=== PATIENT | female | born 1970 | race Caucasian/White ===

== ENCOUNTER 2016-09-17 13:03 | Emergency (ER) | payer OTHER ==
[~2016-09-17] VITALS: Ht 157.5 cm; Wt 129.7 kg
[~2016-09-17 13:03] MED LIST: AMARYL4 MG PO; AMBIEN 10 MG TA10 MG PO; AMBIEN 5 MG TABL5 M1 PO; ANTIVERT25 MG PO; ATHLETE'S FOOT15 GM; BACTRIM DS TAB1 EACH PO; BACTROBAN CREAM30 G1 TOP; BENADRYL25 MG PO; BENTYL20 MG PO; CARBAMAZEPINE200 M2 PO; CIPROFLOXACIN500 M3 PO; CLARITIN10 M2 PO; CLONAZEPAM 1 MG1 M1 PO; CLONAZEPAM PO; CLOTRIM ANTIFUN15 GM TP; CYMBALTA30 MG PO; CYMBALTA60 MG PO; DICLOFENAC SODI75 MG PO; DIFLUCAN200 MG PO; DILAUDID 2 MG TA2 MG PO; DITROPAN XL5 M1 PO; FAMCYCLOVIR 50500 M1 PO; FLEXERIL PO; GABAPENTIN100 MG PO; GLIPIZIDE XL10 MG PO; GLUCOPHAGE1000 MG PO; GLUCOPHAGE500 MG PO; GLUCOTROL10 MG PO; HUMALOG100 UNIT/1 SUBQ; HUMALOG100 UNIT/2 SQ; HYDROCODON-ACE1 EAC7 PO; HYDROCODONE-AP1 EAC6 PO; IBUPROFEN 600600 M1 PO; IBUPROFEN 800800 M1 PO; LANTUS100 UNIT/M SUBQ; LEVEMIR SUBQ; LEXAPRO PO; LEXAPRO20 MG PO; LISINOPRIL20 MG PO; LOMOTIL TABLET1 EACH; LORTAB 5 MG/5001 TA1 PO; MACROBID 100 M100 M1 PO; MEDROLDOSEPACK PO; METFORMIN PO; NEURONTIN 300300 M1 PO; NORCO 5-325 TA1 EACH; NORCO 5-325 TA1 EACH PO; NOVOLOG100 UNIT/1 SUBQ; OMEPRAZOLE20 M2 PO; ONDANSETRON HCL4 M2 PO; OXYCODONE HCL10 MG PO; PAXIL10 MG PO; PERCOCET 5-3251 EACH PO; PHENERGAN 25 MG25 M1 PO; PREDNISONE 20 M20 M1 PO; PREDNISONE 20 M20 MG PO; PYRIDIUM200 M1 PO; RESTORIL PO; SEROQUEL 50 MG50 M1 PO; SEROQUEL200 MG PO; TRIAMCINOLONE A80 G2 TOP; VICODIN 5-5001 EACH PO; ZANTAC 150MG T150 M1 PO; ZOFRAN4 MG PO; ZOFRAN8 MG PO
[2016-09-17 13:42] LABS: URINE BILIRUBIN NEGATIVE (Negative); URINE BLOOD 2+ (Negative); URINE COLOR YELLOW; URINE GLUCOSE-RANDOM* 3+ (Negative); URINE KETONES NEGATIVE (Negative); URINE NITRITE NEGATIVE (Negative); URINE PROTEIN (DIPSTICK) NEGATIVE (Negative); URINE SPECIFIC GRAVITY <= 1.005 (1.003-1.035); URINE UROBILINOGEN 0.2 E.U./dl (0.2-1.0)
[2016-09-17 13:48] LABS: BACTERIA 1-9 Few /HPF (None Seen); CASTS None Seen /LPF (None Seen); CRYSTALS None Seen /LPF (None Seen); SQUAMOUS 4-10 Moderate /LPF (0-3); URINE WBC 6-15 Few /HPF (0-5); YEAST Present (None Seen)
[2016-09-17 13:49] LABS: URINE RBC 3-10 Few /HPF (0-2)
[2016-09-17] MEDS ORDERED: IBUPROFEN 600600 M1 PO (13:53)
[2016-09-17] MEDS ORDERED: ALEVE220 MG PO (13:53)
[2016-09-17 14:56] LABS: BASOPHILS 0.3 % (0.0-2.0); EOSINOPHILS 1.5 % (0.0-3.0); HEMATOCRIT 39.4 % (37.0-47.0); LYMPHOCYTES 26.3 % (24.0-44.0); MCH 27.3 pg (26.0-34.0); MCHC 32.9 % (28.0-37.0); MCV 82.9 fL (80.0-100.0); PLATELET COUNT 112 thou/uL (150-400); POLYS 64.9 % (36.0-66.0); RBC 4.75 mil/uL (4.20-5.00); RDW 15.4 % (10.5-14.5); WBC 6.1 thou/uL (4.0-11.0)
[2016-09-17 14:58] LABS: MANUAL DIFF NO
[2016-09-17 15:08] LABS: CALCIUM 8.7 mg/dL (8.5-10.1); CREATININE 0.8 mg/dL (0.6-1.3); POTASSIUM 3.6 mmol/L (3.5-5.1)
[2016-09-17] MEDS ORDERED: DIFLUCAN150 MG PO (15:09)
[2016-09-17 15:57] LABS: ABG SAMPLE TYPE ARTERIAL; BE(vivo) 0.2 mmol/L (-2 to +3); HCO3 24.1 mmol/L (22.0-26.0); LACTATE 1.88 mmol/L (0.5-2.0); O2(CT) 17.7 mL/dL (15.0-23.0); O2Hb VENOUS 90.7 (65.0-85.0); PCO2 VENOUS 36.8 mmHg (41.0-51.0); PO2 VENOUS 63.1 mmHg (35.0-45.0); sO2 VENOUS 92.9 % (65.0-85.0); tCO2 25.2 mmol/L (24.0-30.0)
[2016-09-17 15:58] LABS: STICK SITE LINE
[2016-09-18 14:08] LABS: CHLAMYDIA TRACHOMATIS-PCR Negative (Negative); NEISSERIA GONORRHEA-PCR Negative (Negative)
[2016-11-10] MEDS ORDERED: BACTROBAN CREAM30 G1 TOP (16:04)
[2016-11-10] MEDS ORDERED: KEFLEX500 MG PO (16:10)
== END 2016-09-17 16:58 ==
LOC: ER 13:03
PROVIDERS: Physician Assistant
DX: B37.3 Candidiasis of vulva and vagina (principal); G89.29 Other chronic pain; E11.65 Type 2 diabetes mellitus with hyperglycemia; E66.01 Morbid (severe) obesity due to excess calories; F23 Brief psychotic disorder; F32.9 Major depressive disorder, single episode, unspecified; K74.60 Unspecified cirrhosis of liver; Z88.6 Allergy status to analgesic agent; Z91.013 Allergy to seafood; Z91.040 Latex allergy status; Z88.1 Allergy status to other antibiotic agents; Z91.018 Allergy to other foods; F17.210 Nicotine dependence, cigarettes, uncomplicated; F10.99 Alcohol use, unspecified with unspecified alcohol-induced disorder

== ENCOUNTER 2017-10-11 14:50 | Emergency (ER) | payer OTHER ==
[~2017-10-11] VITALS: Ht 160 cm; Wt 121.6 kg
[~2017-10-11 14:50] MED LIST changes: +ALEVE220 MG PO; +DIFLUCAN150 MG PO; +KEFLEX500 MG PO
[2017-10-11] MEDS ORDERED: HYDROCODONE-AP1 EAC6 PO (16:31)
[2017-10-11 16:48] VITALS: BP 133/76
[2017-12-17] MEDS ORDERED: ZOFRAN ODT4 MG PO (01:24)
[2017-12-17] MEDS ORDERED: NORFLEX100 MG PO (01:24)
[2017-12-23] MEDS ORDERED: NEURONTIN 300300 M1 PO (13:55)
[2017-12-23] MEDS ORDERED: HYDROCODONE-AP1 EAC6 PO (14:36)
[2018-03-27] MEDS ORDERED: KEFLEX500 M1 PO (10:38)
[2018-03-27] MEDS ORDERED: CLOBETASOL PROP50 M1 TOP (10:39)
[2018-03-27] MEDS ORDERED: PREDNISONE 20 M20 MG PO (10:39)
[2018-04-07] MEDS ORDERED: DOXYCYCLINE HYC50 MG PO (10:00)
[2018-04-07] MEDS ORDERED: CENTANY30 GM TOP (10:01)
[2018-04-23] MEDS ORDERED: CELLCEPT500 MG PO (15:52)
[2018-04-23] MEDS ORDERED: PREDNISONE 20 M20 MG PO (15:52)
[2018-04-23] MEDS ORDERED: CLINDAMYCIN HC300 MG PO (16:00)
== END 2017-10-11 16:55 | disposition home or self-care (01) ==
LOC: ER 14:50
DX: S46.811A Strain of other muscles, fascia and tendons at shoulder and upper arm level, right arm, initial encounter (principal); E11.9 Type 2 diabetes mellitus without complications; E66.01 Morbid (severe) obesity due to excess calories; M54.9 Dorsalgia, unspecified; G89.29 Other chronic pain; Z87.891 Personal history of nicotine dependence; Z88.5 Allergy status to narcotic agent; Z88.6 Allergy status to analgesic agent; Z88.8 Allergy status to other drugs, medicaments and biological substances; W18.2XXA Fall in (into) shower or empty bathtub, initial encounter; Y93.89 Activity, other specified; Y92.89 Other specified places as the place of occurrence of the external cause; Y99.8 Other external cause status

== ENCOUNTER 2017-12-04 16:14 | Inpatient (IN) | payer OTHER ==
[~2017-12-04] VITALS: Ht 157.5 cm; Wt 128.8 kg
[2017-12-04 16:57] VITALS: BP 133/82
[2017-12-04 17:50] LABS: ABSOLUTE NEUTROPHILS 5.2 thou/uL (1.4-8.2); BASOPHILS 0.9 % (0.0-2.0); EOSINOPHILS 2.7 % (0.0-3.0); HEMATOCRIT 41.9 % (37.0-47.0); HEMOGLOBIN 14.2 gm/dL (12.0-15.0); LYMPHOCYTES 22.4 % (24.0-44.0); MCH 30.1 pg (26.0-34.0); MCHC 33.9 g/dL (28.0-37.0); MCV 88.8 fL (80.0-100.0); MONOCYTES 8.8 % (1.0-8.0); PLATELET COUNT 125 thou/uL (150-400); POLYS 65.2 % (36.0-66.0); RBC 4.72 mil/uL (4.20-5.00); RDW 14.8 % (10.5-14.5); WBC 8.1 thou/uL (4.0-11.0)
[2017-12-04 17:55] LABS: URINE BILIRUBIN NEGATIVE (Negative); URINE BLOOD NEGATIVE (Negative); URINE CLARITY CLEAR; URINE COLOR YELLOW; URINE GLUCOSE-RANDOM* 3+ (Negative); URINE KETONES NEGATIVE (Negative); URINE LEUKOCYTES-REFLEX NEGATIVE (Negative); URINE NITRITE-REFLEX NEGATIVE (Negative); URINE PROTEIN (DIPSTICK) TRACE (Negative)
[2017-12-04 17:58] LABS: CALCIUM 9.2 mg/dL (8.5-10.1); CREATININE 0.9 mg/dL (0.6-1.0)
[2017-12-04 18:00] LABS: POTASSIUM 2.9 mmol/L (3.5-5.1)
[2017-12-04 18:04] LABS: ALBUMIN 2.6 g/dL (3.4-5.0); TOTAL BILIRUBIN 0.5 mg/dL (<0.1-1.0); TOTAL PROTEIN 7.2 g/dL (6.4-8.2)
[2017-12-04 20:46] LABS: AMP/METHAMP Negative (Negative); BARBITURATES Negative (Negative); BENZODIAZEPINES Negative (Negative); COCAINE Negative (Negative); METHADONE Negative (Negative); OPIATES Negative (Negative); PCP Negative (Negative)
[2017-12-04 21:13] VITALS: BP 133/82
[2017-12-04] MEDS ORDERED: LANTUS100 UNIT/M SUBQ (21:45)
[2017-12-04] MEDS ORDERED: NOVOLOG100 UNIT/1 SUBQ (21:45)
[2017-12-04 22:00] VITALS: BP 130/88
[2017-12-04 22:03] VITALS: BP 132/74
[2017-12-04 22:31] LABS: MAGNESIUM 1.3 mg/dL (1.8-2.4); POTASSIUM 3.7 mmol/L (3.5-5.1)
[2017-12-05 02:56] LABS: HEMATOCRIT 42.8 % (37.0-47.0); HEMOGLOBIN 14.5 gm/dL (12.0-15.0); MCH 30.1 pg (26.0-34.0); MCHC 33.8 g/dL (28.0-37.0); RBC 4.81 mil/uL (4.20-5.00); WBC 6.7 thou/uL (4.0-11.0)
[2017-12-05 03:00] VITALS: BP 160/92
[2017-12-05 03:05] LABS: CREATININE 0.9 mg/dL (0.6-1.0); MAGNESIUM 1.5 mg/dL (1.8-2.4); POTASSIUM 4.4 mmol/L (3.5-5.1)
[2017-12-05 07:12] VITALS: BP 141/79
[2017-12-05 15:17] VITALS: BP 149/69
[2017-12-05 16:04] VITALS: BP 145/69
[2017-12-05 19:30] VITALS: BP 145/64
[2017-12-06 00:15] VITALS: BP 133/68
[2017-12-06 04:05] VITALS: BP 136/70
[2017-12-06 04:26] LABS: BASOPHILS 0.1 % (0.0-2.0); HEMATOCRIT 41.4 % (37.0-47.0); HEMOGLOBIN 13.9 gm/dL (12.0-15.0); LYMPHOCYTES 7.3 % (24.0-44.0); MCH 30.1 pg (26.0-34.0); MCHC 33.5 g/dL (28.0-37.0); MONOCYTES 1.7 % (1.0-8.0); PLATELET COUNT 94 thou/uL (150-400); POLYS 90.9 % (36.0-66.0); RDW 14.7 % (10.5-14.5); WBC 9.9 thou/uL (4.0-11.0)
[2017-12-06 04:33] LABS: CALCIUM 8.7 mg/dL (8.5-10.1); CREATININE 0.7 mg/dL (0.6-1.0)
[2017-12-06 07:17] LABS: MAGNESIUM 1.6 mg/dL (1.8-2.4)
[2017-12-06] MEDS ORDERED: MEDROL DOSPAK21 TA1 PO (08:10)
[2017-12-06 08:11] VITALS: BP 159/97
[2017-12-06 10:01] VITALS: BP 159/97
[2017-12-06 14:06] LABS: COMPLEMENT-C3 156 mg/dL (82-167); COMPLEMENT-C4 11 mg/dL (14-44)
[2017-12-08 20:07] LABS: ANA INTERPRETATION Negative (())
== END 2017-12-06 11:12 | disposition home or self-care (01) | DRG 546 ==
LOC: ER 16:14 → EROBS 20:06 → 3W 20:06
PROVIDERS: Emergency Medicine; Family Medicine; Hospitalist; Internal Medicine Rheumatology; Nurse Practitioner Family; Physician Assistant
DX: I77.6 Arteritis, unspecified (principal); Z68.43 Body mass index [BMI] 50.0-59.9, adult; E87.6 Hypokalemia; E11.9 Type 2 diabetes mellitus without complications; F20.9 Schizophrenia, unspecified; F32.9 Major depressive disorder, single episode, unspecified; G89.29 Other chronic pain; M54.9 Dorsalgia, unspecified; E66.01 Morbid (severe) obesity due to excess calories; Z88.8 Allergy status to other drugs, medicaments and biological substances; Z88.6 Allergy status to analgesic agent; Z91.040 Latex allergy status
CPT/HCPCS: 10080

== ENCOUNTER 2018-01-11 17:56 | Inpatient (IN) | payer OTHER ==
[~2018-01-11] VITALS: Ht 160 cm; Wt 129.7 kg
[~2018-01-11 17:56] MED LIST changes: +MEDROL DOSPAK21 TA1 PO; +NORFLEX100 MG PO; +ZOFRAN ODT4 MG PO
[2018-01-11 18:08] VITALS: BP 181/76
[2018-01-11 19:39] LABS: ABSOLUTE NEUTROPHILS 6.4 thou/uL (1.4-8.2); BASOPHILS 0.8 % (0.0-2.0); EOSINOPHILS 1.9 % (0.0-3.0); HEMATOCRIT 41.4 % (37.0-47.0); HEMOGLOBIN 14.2 gm/dL (12.0-15.0); LYMPHOCYTES 20.3 % (24.0-44.0); MCHC 34.3 g/dL (28.0-37.0); MCV 90.4 fL (80.0-100.0); MONOCYTES 6.4 % (1.0-8.0); PLATELET COUNT 138 thou/uL (150-400); POLYS 70.6 % (36.0-66.0); RBC 4.58 mil/uL (4.20-5.00); RDW 14.5 % (10.5-14.5)
[2018-01-11 19:45] LABS: URINE BILIRUBIN NEGATIVE (Negative); URINE BLOOD TRACE (Negative); URINE CLARITY CLOUDY; URINE COLOR YELLOW; URINE GLUCOSE-RANDOM* 3+ (Negative); URINE KETONES NEGATIVE (Negative); URINE LEUKOCYTES-REFLEX 1+ (Negative); URINE NITRITE-REFLEX NEGATIVE (Negative); URINE PROTEIN (DIPSTICK) NEGATIVE (Negative); URINE SPECIFIC GRAVITY 1.015 (1.005-1.035)
[2018-01-11 19:48] LABS: CALCIUM 8.9 mg/dL (8.5-10.1); CREATININE 0.7 mg/dL (0.6-1.0); MAGNESIUM 1.3 mg/dL (1.8-2.4); POTASSIUM 3.2 mmol/L (3.5-5.1)
[2018-01-11 19:52] LABS: BACTERIA-REFLEX >30 Many /HPF (None Seen); CASTS None Seen /LPF (None Seen); CRYSTALS None Seen /LPF (None Seen); SQUAMOUS 0-3 Few /LPF (0-3); URINE WBC-REFLEX >25 Many /HPF (0-5); YEAST-REFLEX Present (None Seen)
[2018-01-11 19:53] LABS: URINE RBC 0-2 Rare /HPF (0-2)
[2018-01-11 21:27] VITALS: BP 144/74
[2018-01-12 00:16] VITALS: BP 127/64
[2018-01-12 00:25] VITALS: BP 141/80
[2018-01-12 07:50] VITALS: BP 133/77
[2018-01-12 15:35] VITALS: BP 118/82
[2018-01-12 20:00] VITALS: BP 135/74
[2018-01-13 04:00] VITALS: BP 122/59
[2018-01-13 08:00] VITALS: BP 134/68
[2018-01-13 16:56] VITALS: BP 152/81
[2018-01-13 20:00] VITALS: BP 134/92
[2018-01-14 04:00] VITALS: BP 143/80
[2018-01-14 08:21] VITALS: BP 155/90
[2018-01-14] MEDS ORDERED: FLUCONAZOLE 10100 MG PO (09:50)
[2018-01-14] MEDS ORDERED: CEFUROXIME500 MG PO (09:50)
[2018-01-14] MEDS ORDERED: PREDNISONE 20 M20 MG PO (09:51)
[2018-01-14 10:56] LABS: CHOLESTEROL 181 mg/dL (<200); HDL CHOLESTEROL 60 mg/dL (>40); LDL CHOLESTEROL 99 mg/dL (<100); TRIGLYCERIDE 113 mg/dL (<150); VLDL 23 mg/dL (<40)
[2018-01-14 13:12] VITALS: BP 155/90
[2018-01-15 03:12] LABS: GLYCOHEMOGLOBIN (HGB A1C) 11.2 % (4.8-5.6)
== END 2018-01-14 14:00 | disposition home or self-care (01) | DRG 690 ==
LOC: ER 17:56 → 4N 21:15 → EROBS 21:15 → 4N 01-12 00:18 → ENTRNSPT 01-14 13:53 → EDTRNSPTSTS 01-14 13:55 → 4N 01-14 14:00
PROVIDERS: Emergency Medicine; Hospitalist
DX: N39.0 Urinary tract infection, site not specified (principal); Z68.43 Body mass index [BMI] 50.0-59.9, adult; E66.01 Morbid (severe) obesity due to excess calories; E11.42 Type 2 diabetes mellitus with diabetic polyneuropathy; E87.6 Hypokalemia; I77.6 Arteritis, unspecified; F41.9 Anxiety disorder, unspecified; R21 Rash and other nonspecific skin eruption; F20.9 Schizophrenia, unspecified; F31.9 Bipolar disorder, unspecified; E83.42 Hypomagnesemia; E11.65 Type 2 diabetes mellitus with hyperglycemia; K74.60 Unspecified cirrhosis of liver; Z86.14 Personal history of Methicillin resistant Staphylococcus aureus infection; Z98.891 History of uterine scar from previous surgery; Z87.891 Personal history of nicotine dependence; Z90.49 Acquired absence of other specified parts of digestive tract; Z90.710 Acquired absence of both cervix and uterus; Z79.4 Long term (current) use of insulin; Z79.899 Other long term (current) drug therapy; Z88.6 Allergy status to analgesic agent; Z91.040 Latex allergy status; Z88.5 Allergy status to narcotic agent; Z91.013 Allergy to seafood; Z88.8 Allergy status to other drugs, medicaments and biological substances; Z91.018 Allergy to other foods; Z82.49 Family history of ischemic heart disease and other diseases of the circulatory system; Z83.3 Family history of diabetes mellitus
CPT/HCPCS: 10091

== ENCOUNTER 2018-01-23 18:36 | Emergency (ER) | payer OTHER ==
[~2018-01-23] VITALS: Ht 157.5 cm; Wt 128.8 kg
--- NOTE | ~2018-01-23 | EKG ---
[address] [address] ELECTROCARDIOGRAM REPORT Name: LIANE GRAHAM [id number] Admission: 01/23/18 Attend Phys: Discharge: 01/23/18 Date of : 68 Report #: [id number] THIS REPORT FOR: //name// [facility] ED Test Date: 2018-01-23 Test Time: 19:52:50 Pat Name: LIANE GRAHAM Department: Room: Gender: F Corporate Attorney: THESINGJ : 1970 Requested By: Alfredo Aburto Order Number: [id number] MD: Isai Hawley Measurements Intervals [place] Rate: 102 P: 48 [place]: 129 QRS: 4 QRSD: 96 T: 45 QT: 374 QTc: 488 Interpretive Statements Sinus tachycardia Probable left ventricular hypertrophy Compared to ECG 12/23/2017 13:45:46 Poor R-wave progression no longer present Electronically Signed On 01-26-2018 7:58:26 CDT by Isai Hawley [email or web address] <ELECTRONICALLY SIGNED> By: Isai Hawley MD 01/26/18 0758 51 51 Isai Hawley MD /OSEI
[~2018-01-23 18:36] MED LIST changes: +CEFUROXIME500 MG PO; +FLUCONAZOLE 10100 MG PO
[2018-01-23 20:28] LABS: ABSOLUTE NEUTROPHILS 5.3 thou/uL (1.4-8.2); BASOPHILS 1.2 % (0.0-2.0); EOSINOPHILS 3.5 % (0.0-3.0); HEMATOCRIT 40.1 % (37.0-47.0); HEMOGLOBIN 13.6 gm/dL (12.0-15.0); LYMPHOCYTES 24.8 % (24.0-44.0); MCH 30.5 pg (26.0-34.0); MCV 89.5 fL (80.0-100.0); MONOCYTES 8.4 % (1.0-8.0); PLATELET COUNT 142 thou/uL (150-400); POLYS 62.1 % (36.0-66.0); RBC 4.48 mil/uL (4.20-5.00); RDW 13.9 % (10.5-14.5); WBC 8.6 thou/uL (4.0-11.0)
[2018-01-23 20:37] LABS: CALCIUM 9.3 mg/dL (8.5-10.1); CREATININE 0.6 mg/dL (0.6-1.0)
[2018-01-23 20:42] LABS: ALBUMIN 2.6 g/dL (3.4-5.0); TOTAL BILIRUBIN 0.3 mg/dL (<0.1-1.0); TOTAL PROTEIN 7.2 g/dL (6.4-8.2)
== END 2018-01-23 21:44 | disposition home or self-care (01) ==
LOC: ER 18:36
PROVIDERS: Emergency Medicine
DX: M79.604 Pain in right leg (principal); M79.605 Pain in left leg; R53.1 Weakness; E66.01 Morbid (severe) obesity due to excess calories; E11.9 Type 2 diabetes mellitus without complications; F20.9 Schizophrenia, unspecified; F32.9 Major depressive disorder, single episode, unspecified; G89.29 Other chronic pain; M54.9 Dorsalgia, unspecified; E11.40 Type 2 diabetes mellitus with diabetic neuropathy, unspecified; Z79.4 Long term (current) use of insulin; Z88.5 Allergy status to narcotic agent; Z88.6 Allergy status to analgesic agent; Z88.8 Allergy status to other drugs, medicaments and biological substances; Z91.018 Allergy to other foods; Z91.040 Latex allergy status; Z87.891 Personal history of nicotine dependence; Z68.43 Body mass index [BMI] 50.0-59.9, adult

== ENCOUNTER 2018-04-08 17:14 | Inpatient (IN) | payer OTHER ==
[~2018-04-08] VITALS: Ht 157.5 cm; Wt 137.9 kg
--- NOTE | ~2018-04-08 | EKG ---
[address] [place] [facility] [address] ELECTROCARDIOGRAM REPORT Name: GLADYSLIANE Room #: 206-P ADM IN .R.#: [id number] Admission: 04/08/18 Attend Phys: Sreekanth Perdomo MD Discharge: Date of : 68 Report #: [id number] THIS REPORT FOR: //name// [facility] ED Test Date: 2018-04-08 Test Time: 17:24:23 Pat Name: LIANE GRAHAM Department: Room: 206 Gender: F Punch Hand: JESSICA : 1970 Requested By: Tamiko Rohtman Order Number: [id number] MD: Nate Palmer Measurements Intervals [place] Rate: 113 P: 54 [place]: 118 QRS: 17 QRSD: 92 T: 52 QT: 334 QTc: 458 Interpretive Statements Sinus tachycardia Otherwise normal tracing Compared to ECG 04/07/2018 16:07:26 No significant changes Electronically Signed On 04-09-2018 7:21:11 CDT by Nate Palmer [email or web address] <ELECTRONICALLY SIGNED> By: Nate Palmer MD, [facility] 04/09/18 0721 1724 172 Nate Palmer MD, [facility] /EPI
[~2018-04-08 17:14] MED LIST changes: +CENTANY30 GM TOP; +CLOBETASOL PROP50 M1 TOP; +DOXYCYCLINE HYC50 MG PO; +KEFLEX500 M1 PO
[2018-04-08 17:15] VITALS: BP 141/70
[2018-04-08] MEDS ORDERED: POTASSIUM20 PO (18:07)
[2018-04-08] MEDS ORDERED: LASIX 20 MG TAB20 MG PO (18:08)
[2018-04-08 18:20] LABS: HEMOGLOBIN 12.5 gm/dL (12.0-15.0); MCH 30.8 pg (26.0-34.0); MCHC 33.7 g/dL (28.0-37.0); MCV 91.4 fL (80.0-100.0); RBC 4.05 mil/uL (4.20-5.00); RDW 15.6 % (10.5-14.5); WBC 11.1 thou/uL (4.0-11.0)
[2018-04-08 18:27] LABS: ANION GAP 5 mmol/L (7-16); BUN 16 mg/dL (7-18); CHLORIDE 103 mmol/L (98-107); CO2 28 mmol/L (21-32); CREATININE 0.7 mg/dL (0.6-1.0); GLUCOSE 156 mg/dL (74-106); POTASSIUM 3.6 mmol/L (3.5-5.1); SODIUM 136 mmol/L (136-145)
[2018-04-08 18:34] LABS: URINE BILIRUBIN NEGATIVE (Negative); URINE BLOOD 2+ (Negative); URINE CLARITY CLEAR; URINE COLOR YELLOW; URINE GLUCOSE-RANDOM* NEGATIVE (Negative); URINE KETONES NEGATIVE (Negative); URINE NITRITE-REFLEX NEGATIVE (Negative); URINE PROTEIN (DIPSTICK) NEGATIVE (Negative); URINE SPECIFIC GRAVITY <= 1.005 (1.005-1.035); URINE UROBILINOGEN 0.2 E.U./dl (0.2-1.0)
[2018-04-08 18:36] LABS: ALBUMIN 2.2 g/dL (3.4-5.0); LIPASE 127 U/L (73-393); SGOT 61 U/L (15-37); SGPT 81 U/L (30-65); TOTAL BILIRUBIN 0.3 mg/dL (<0.1-1.0); TOTAL PROTEIN 6.5 g/dL (6.4-8.2); TROPONIN-I <0.06 ng/mL (<0.06)
[2018-04-08 18:37] LABS: URINE LEUKOCYTES-REFLEX 1+ (Negative)
[2018-04-08 18:43] LABS: CALCIUM OXALATE 0-3 Few /LPF (None Seen)
[2018-04-08 18:44] LABS: CASTS None Seen /LPF (None Seen); CRYSTALS None Seen /LPF (None Seen); SQUAMOUS 0-3 Few /LPF (0-3); URINE RBC 3-10 Few /HPF (0-2); URINE WBC-REFLEX 0-5 Rare /HPF (0-5)
[2018-04-08 20:23] VITALS: BP 116/75
[2018-04-08 21:23] VITALS: BP 158/84
[2018-04-08 21:39] VITALS: BP 127/71
[2018-04-09 03:12] VITALS: BP 144/73
[2018-04-09 04:08] LABS: HEMATOCRIT 36.9 % (37.0-47.0); HEMOGLOBIN 12.4 gm/dL (12.0-15.0); MCHC 33.7 g/dL (28.0-37.0); MCV 91.9 fL (80.0-100.0); RBC 4.01 mil/uL (4.20-5.00); RDW 15.8 % (10.5-14.5); WBC 8.1 thou/uL (4.0-11.0)
[2018-04-09 04:12] LABS: ANION GAP 5 mmol/L (7-16); BUN 14 mg/dL (7-18); CALCIUM 8.8 mg/dL (8.5-10.1); CHLORIDE 105 mmol/L (98-107); CO2 27 mmol/L (21-32); CREATININE 0.6 mg/dL (0.6-1.0); GLUCOSE 228 mg/dL (74-106); SODIUM 137 mmol/L (136-145); TROPONIN-I <0.06 ng/mL (<0.06)
[2018-04-09 08:57] VITALS: BP 152/86
[2018-04-09 12:37] VITALS: BP 152/86
[2018-04-09 12:48] VITALS: BP 147/90
== END 2018-04-09 13:15 | disposition home or self-care (01) | DRG 313 ==
LOC: ER 17:14 → EROBS 19:12 → 2N 21:24 → ENTRNSPT 04-09 13:00 → EDTRNSPTSTS 04-09 13:09 → 2N 04-09 13:15
PROVIDERS: Nurse Practitioner Family; Student in an Organized Health Care Education/Training Program
PROC: 05HY33Z Insertion of Infusion Device into Upper Vein, Percutaneous Approach (ICD-10-PCS; principal; 2018-04-08)
DX: R07.89 Other chest pain (principal); N39.0 Urinary tract infection, site not specified; Z68.43 Body mass index [BMI] 50.0-59.9, adult; E66.01 Morbid (severe) obesity due to excess calories; G89.29 Other chronic pain; M54.9 Dorsalgia, unspecified; K74.60 Unspecified cirrhosis of liver; E11.42 Type 2 diabetes mellitus with diabetic polyneuropathy; F17.210 Nicotine dependence, cigarettes, uncomplicated; I77.6 Arteritis, unspecified; F20.9 Schizophrenia, unspecified; F31.9 Bipolar disorder, unspecified; F41.9 Anxiety disorder, unspecified; Z65.8 Other specified problems related to psychosocial circumstances; Z83.3 Family history of diabetes mellitus; Z79.4 Long term (current) use of insulin; Z87.442 Personal history of urinary calculi; Z90.49 Acquired absence of other specified parts of digestive tract; Z90.710 Acquired absence of both cervix and uterus; Z88.6 Allergy status to analgesic agent; Z88.8 Allergy status to other drugs, medicaments and biological substances; Z82.49 Family history of ischemic heart disease and other diseases of the circulatory system
CPT/HCPCS: 10081; 27001

== ENCOUNTER 2018-04-11 20:51 | Emergency (ER) | payer OTHER ==
[~2018-04-11] VITALS: Ht 157.5 cm; Wt 138.8 kg
[~2018-04-11 20:51] MED LIST changes: +LASIX 20 MG TAB20 MG PO; +POTASSIUM20 PO
[2018-04-11] MEDS ORDERED: HYDROXYZINE HCL50 MG PO (21:35)
== END 2018-04-11 22:51 | disposition home or self-care (01) ==
LOC: ER 20:51
DX: L95.8 Other vasculitis limited to the skin (principal); E11.40 Type 2 diabetes mellitus with diabetic neuropathy, unspecified; K74.60 Unspecified cirrhosis of liver; E66.01 Morbid (severe) obesity due to excess calories; F31.9 Bipolar disorder, unspecified; F20.9 Schizophrenia, unspecified; G89.29 Other chronic pain; M54.9 Dorsalgia, unspecified; Z87.891 Personal history of nicotine dependence; Z88.5 Allergy status to narcotic agent; Z91.013 Allergy to seafood; Z88.6 Allergy status to analgesic agent; Z91.040 Latex allergy status; Z88.8 Allergy status to other drugs, medicaments and biological substances; Z91.018 Allergy to other foods; Z79.4 Long term (current) use of insulin; Z68.43 Body mass index [BMI] 50.0-59.9, adult; Z87.442 Personal history of urinary calculi; Z90.49 Acquired absence of other specified parts of digestive tract; Z90.710 Acquired absence of both cervix and uterus; Z98.890 Other specified postprocedural states

== ENCOUNTER 2018-06-20 18:12 | Emergency (ER) | payer OTHER ==
[~2018-06-20] VITALS: Ht 160 cm; Wt 134.3 kg
[~2018-06-20 18:12] MED LIST changes: +CELLCEPT500 MG PO; +CLINDAMYCIN HC300 MG PO; +HYDROXYZINE HCL50 MG PO
[2018-06-20 20:19] LABS: URINE BILIRUBIN NEGATIVE (Negative); URINE BLOOD NEGATIVE (Negative); URINE CLARITY CLEAR; URINE COLOR YELLOW; URINE GLUCOSE-RANDOM* 3+ (Negative); URINE KETONES NEGATIVE (Negative); URINE LEUKOCYTES-REFLEX NEGATIVE (Negative); URINE NITRITE-REFLEX NEGATIVE (Negative); URINE PROTEIN (DIPSTICK) NEGATIVE (Negative); URINE SPECIFIC GRAVITY <= 1.005 (1.005-1.035); URINE UROBILINOGEN 0.2 E.U./dl (0.2-1.0)
[2018-06-20 23:34] LABS: HEMATOCRIT 41.5 % (37.0-47.0); HEMOGLOBIN 13.6 gm/dL (12.0-15.0); MCH 28.8 pg (26.0-34.0); MCHC 32.8 g/dL (28.0-37.0); MCV 87.7 fL (80.0-100.0); RBC 4.74 mil/uL (4.20-5.00); RDW 15.2 % (10.5-14.5); WBC 19.1 thou/uL (4.0-11.0)
[2018-06-20 23:45] LABS: CALCIUM 9.8 mg/dL (8.5-10.1); CREATININE 1.1 mg/dL (0.6-1.0); POTASSIUM 3.4 mmol/L (3.5-5.1)
[2018-06-20 23:48] LABS: ALBUMIN 3.1 g/dL (3.4-5.0); TOTAL BILIRUBIN 0.7 mg/dL (<0.1-1.0); TOTAL PROTEIN 8.3 g/dL (6.4-8.2)
[2018-06-21] MEDS ORDERED: MOBIC15 MG PO (02:03)
[2018-06-21] MEDS ORDERED: PREDNISONE 20 M20 MG PO (02:03)
== END 2018-06-21 02:35 | disposition home or self-care (01) ==
LOC: ER 18:12
PROVIDERS: Physician Assistant
DX: L29.9 Pruritus, unspecified (principal); E11.65 Type 2 diabetes mellitus with hyperglycemia; R11.2 Nausea with vomiting, unspecified; R10.84 Generalized abdominal pain; Z91.14 Patient's other noncompliance with medication regimen; F20.9 Schizophrenia, unspecified; F31.9 Bipolar disorder, unspecified; M54.9 Dorsalgia, unspecified; G89.29 Other chronic pain; E11.40 Type 2 diabetes mellitus with diabetic neuropathy, unspecified; K74.60 Unspecified cirrhosis of liver; Z90.49 Acquired absence of other specified parts of digestive tract; Z90.710 Acquired absence of both cervix and uterus; Z87.891 Personal history of nicotine dependence; Z88.5 Allergy status to narcotic agent; Z91.013 Allergy to seafood; Z88.6 Allergy status to analgesic agent; Z91.040 Latex allergy status; Z88.8 Allergy status to other drugs, medicaments and biological substances; Z91.018 Allergy to other foods; Z98.890 Other specified postprocedural states; Z79.4 Long term (current) use of insulin

== ENCOUNTER 2018-10-29 17:45 | Emergency (ER) | payer OTHER ==
[~2018-10-29] VITALS: Ht 157.5 cm; Wt 120.2 kg
[~2018-10-29 17:45] MED LIST changes: +MOBIC15 MG PO
[2018-10-29 19:33] LABS: URINE BILIRUBIN NEGATIVE (Negative); URINE BLOOD NEGATIVE (Negative); URINE CLARITY CLEAR; URINE COLOR YELLOW; URINE GLUCOSE-RANDOM* 3+ (Negative); URINE KETONES NEGATIVE (Negative); URINE LEUKOCYTES-REFLEX NEGATIVE (Negative); URINE NITRITE-REFLEX NEGATIVE (Negative); URINE PROTEIN (DIPSTICK) NEGATIVE (Negative)
[2018-10-29 21:22] LABS: BASOPHILS 0.6 % (0.0-2.0); EOSINOPHILS 2.1 % (0.0-3.0); HEMATOCRIT 37.8 % (37.0-47.0); HEMOGLOBIN 12.6 gm/dL (12.0-15.0); LYMPHOCYTES 16.5 % (24.0-44.0); MCH 27.7 pg (26.0-34.0); MCHC 33.4 g/dL (28.0-37.0); MCV 82.9 fL (80.0-100.0); MONOCYTES 9.1 % (1.0-8.0); PLATELET COUNT 153 thou/uL (150-400); POLYS 71.7 % (36.0-66.0); RBC 4.55 mil/uL (4.20-5.00); RDW 17.6 % (10.5-14.5); WBC 8.4 thou/uL (4.0-11.0)
[2018-10-29 21:31] LABS: CALCIUM 8.8 mg/dL (8.5-10.1); CREATININE 0.7 mg/dL (0.6-1.0); POTASSIUM 3.8 mmol/L (3.5-5.1)
[2018-10-29 21:38] LABS: ALBUMIN 2.3 g/dL (3.4-5.0); DIRECT BILIRUBIN 0.1 mg/dL (<0.1-0.3); TOTAL BILIRUBIN 0.3 mg/dL (<0.1-1.0); TOTAL PROTEIN 7.4 g/dL (6.4-8.2)
[2018-10-29] MEDS ORDERED: MOBIC15 MG PO (22:42)
[2018-10-29] MEDS ORDERED: NORCO 5-325 TA1 EACH PO (22:42)
[2018-10-29 22:48] VITALS: BP 130/89
== END 2018-10-29 22:55 | disposition home or self-care (01) ==
LOC: ER 17:45
PROVIDERS: Emergency Medicine
DX: M54.12 Radiculopathy, cervical region (principal); E11.65 Type 2 diabetes mellitus with hyperglycemia; R11.2 Nausea with vomiting, unspecified; E66.01 Morbid (severe) obesity due to excess calories; F20.9 Schizophrenia, unspecified; F31.9 Bipolar disorder, unspecified; M54.9 Dorsalgia, unspecified; G89.29 Other chronic pain; K74.60 Unspecified cirrhosis of liver; E11.43 Type 2 diabetes mellitus with diabetic autonomic (poly)neuropathy; Z88.5 Allergy status to narcotic agent; Z91.013 Allergy to seafood; Z87.891 Personal history of nicotine dependence; Z88.6 Allergy status to analgesic agent; Z91.040 Latex allergy status; Z88.8 Allergy status to other drugs, medicaments and biological substances; Z91.018 Allergy to other foods; Z88.4 Allergy status to anesthetic agent; Z68.42 Body mass index [BMI] 45.0-49.9, adult; Z90.49 Acquired absence of other specified parts of digestive tract; Z90.710 Acquired absence of both cervix and uterus; Z98.890 Other specified postprocedural states; Z79.4 Long term (current) use of insulin

== ENCOUNTER 2018-12-20 21:27 | Emergency (ER) | payer OTHER ==
[~2018-12-20] VITALS: Ht 157.5 cm; Wt 120.7 kg
[2018-12-20] MEDS ORDERED: IMDUR 60 MG TAB60 M1 PO (22:05)
[2018-12-20] MEDS ORDERED: RANITIDINE 150150 M1 PO (22:05)
[2018-12-20] MEDS ORDERED: IBUPROFEN 200200 M1 PO (22:07)
[2018-12-20] MEDS ORDERED: MOBIC15 MG PO (23:53)
[2018-12-21] VITALS: BP 158/55
[2018-12-21] MEDS ORDERED: NAPROSYN500 MG PO (17:12)
[2018-12-21] MEDS ORDERED: NORCO 5-325 TA1 EACH PO (17:12)
== END 2018-12-21 00:21 | disposition home or self-care (01) ==
LOC: ER 21:27
DX: S16.1XXA Strain of muscle, fascia and tendon at neck level, initial encounter (principal); G89.29 Other chronic pain; F20.9 Schizophrenia, unspecified; E11.42 Type 2 diabetes mellitus with diabetic polyneuropathy; E66.01 Morbid (severe) obesity due to excess calories; Z68.42 Body mass index [BMI] 45.0-49.9, adult; Z86.14 Personal history of Methicillin resistant Staphylococcus aureus infection; Z90.49 Acquired absence of other specified parts of digestive tract; Z90.710 Acquired absence of both cervix and uterus; Z79.4 Long term (current) use of insulin; Z79.899 Other long term (current) drug therapy; Z87.891 Personal history of nicotine dependence; Z88.5 Allergy status to narcotic agent; Z88.6 Allergy status to analgesic agent; Z88.8 Allergy status to other drugs, medicaments and biological substances; Z91.018 Allergy to other foods; Z91.040 Latex allergy status; W01.0XXA Fall on same level from slipping, tripping and stumbling without subsequent striking against object, initial encounter; Y93.89 Activity, other specified; Y92.89 Other specified places as the place of occurrence of the external cause; Y99.8 Other external cause status

== ENCOUNTER 2018-12-21 15:59 | Emergency (ER) | payer OTHER ==
[~2018-12-21] VITALS: Ht 157.5 cm; Wt 120.7 kg
[~2018-12-21 15:59] MED LIST changes: +IBUPROFEN 200200 M1 PO; +IMDUR 60 MG TAB60 M1 PO; +RANITIDINE 150150 M1 PO
[2018-12-21] MEDS ORDERED: NORCO 5-325 TA1 EACH PO (17:12)
[2018-12-21] MEDS ORDERED: NAPROSYN500 MG PO (17:12)
[2018-12-21 17:25] VITALS: BP 137/68
== END 2018-12-21 17:26 | disposition home or self-care (01) ==
LOC: ER 15:59
DX: M54.2 Cervicalgia (principal); M54.9 Dorsalgia, unspecified; R20.0 Anesthesia of skin; E11.42 Type 2 diabetes mellitus with diabetic polyneuropathy; F20.9 Schizophrenia, unspecified; G89.29 Other chronic pain; M19.90 Unspecified osteoarthritis, unspecified site; E66.01 Morbid (severe) obesity due to excess calories; Z90.49 Acquired absence of other specified parts of digestive tract; Z90.710 Acquired absence of both cervix and uterus; Z86.14 Personal history of Methicillin resistant Staphylococcus aureus infection; Z68.42 Body mass index [BMI] 45.0-49.9, adult; Z79.4 Long term (current) use of insulin; Z79.899 Other long term (current) drug therapy; Z87.891 Personal history of nicotine dependence; Z88.5 Allergy status to narcotic agent; Z88.6 Allergy status to analgesic agent; Z88.8 Allergy status to other drugs, medicaments and biological substances; Z91.018 Allergy to other foods; Z91.040 Latex allergy status; Z86.73 Personal history of transient ischemic attack (TIA), and cerebral infarction without residual deficits; W01.0XXA Fall on same level from slipping, tripping and stumbling without subsequent striking against object, initial encounter; Y93.89 Activity, other specified; Y92.89 Other specified places as the place of occurrence of the external cause; Y99.8 Other external cause status; Z91.013 Allergy to seafood

== ENCOUNTER 2019-01-22 20:08 | Emergency (ER) | payer OTHER ==
[~2019-01-22] VITALS: Ht 157.5 cm; Wt 121.1 kg
[~2019-01-22 20:08] MED LIST changes: +NAPROSYN500 MG PO
[2019-01-22] MEDS ORDERED: CLEOCIN HCL150 MG PO (21:18)
[2019-01-22 21:26] VITALS: BP 184/80
== END 2019-01-22 21:26 | disposition home or self-care (01) ==
LOC: ER 20:08
DX: T81.89XA Other complications of procedures, not elsewhere classified, initial encounter (principal); E66.01 Morbid (severe) obesity due to excess calories; F20.9 Schizophrenia, unspecified; F31.9 Bipolar disorder, unspecified; M54.9 Dorsalgia, unspecified; E11.40 Type 2 diabetes mellitus with diabetic neuropathy, unspecified; G89.29 Other chronic pain; Z90.49 Acquired absence of other specified parts of digestive tract; Z90.710 Acquired absence of both cervix and uterus; Z98.890 Other specified postprocedural states; Z79.4 Long term (current) use of insulin; Z68.42 Body mass index [BMI] 45.0-49.9, adult